=== PATIENT | female | born 1990 | race African-American/Black ===

== ENCOUNTER 2016-10-31 16:22 | Inpatient (IN) ==
[2016-10-31] MEDS ORDERED: ONDANSETRON 4 MG/2 ML VIAL IV STA (16:51)
[2016-10-31] MEDS ORDERED: SODIUM CHLORIDE 0.9% 1,000 ML IV STA (16:51)
--- NOTE | 2016-10-31 16:55 | Emergency Department Note ---
Arrival - Arrival Chief Complaint: Nausea/Vomiting/Diarrhea Stated Complaint: can't hold anything down. foods and liquid ED Nursing Triage Note: Pt c/o nausea and vomiting x 2 wks. Denies diarrhea. Chemo 2 wks ago. Mode of Arrival: Wheelchair Limitations: No Limitations Source: Patient Time Seen by Provider: 10/31/16 16:40 - History of Present Illness HPI Narrative: Patient complains of nausea and vomiting for the past 2 weeks. She has also had body aches and some dizziness. The patient has Hodgkin's lymphoma and took a round of chemo about 3 weeks ago. She has run fever to 102 off and on since the chemo. She also had a biopsy done 5 days ago. She has seen her primary care provider in [place] yesterday. She was called back today and told that her urine showed a urinary tract infection. She also spoke with Dr. Hernandez's office today and was told to come to the emergency room. The patient is taking morphine and Zofran but states they are not helping. Date of Last Menstrual Period: one month ago Allergies/Adverse Reactions: Allergies Allergy/AdvReac Type Severity Reaction Status Date / Time No Known Allergies Allergy Verified 10/02/16 07:39 Home Medications: Home Medications Medication Instructions Recorded Confirmed Type Metformin HCl [Metformin HCl] 1 tablet PO DAILY 10/02/16 10/02/16 History Review of System - Review of System 12 point system: reviewed and no additional remarkable complaints except as stated - Review of System Constitutional: Present: fever (Off and on for 3 weeks. T-max 102) Head/Ears/Nose/Throat: Absent: nasal drainage, sore throat Respiratory: Absent: cough Cardiovascular: Absent: chest pain Gastrointestinal: Present: abdominal pain, nausea, vomiting. Absent: diarrhea, constipation Genitourinary female: Absent: dysuria, frequency Musculoskeletal: Present: other (Body aches) Medical,Surgical,& Family Hx - Medical History Endocrine: History of: Diabetes Mellitus (NIDDM) Respiratory: History of: Obstructive Sleep Apnea (Previously diagnosed many years ago but status post re-titration ) Gastrointestinal: Comment Only: GI Problems (nausea/vomiting) Musculoskeletal: History of: Musculoskeletal Problems Other: History of: Miscellaneous Medical Problems (Hodkins Lymphoma) - Surgical History Surgical History: noncontributory - Family History Family History: Reports;: Family Cancer (grandmother lung, grandfather, colon), Family Hypertension (mother htn) - Social History Smoking Status: Never smoker Exam Physical Examination: GENERAL: Alert. No acute distress. Morbidly obese. HEENT: Normocephalic and atraumatic. There is no nasal drainage. No pharyngeal erythema or exudate. There is thrush on the tongue and mucous membranes are dry. NECK: Normal inspection. Supple. LUNGS: No respiratory distress. Clear to auscultation bilaterally, no wheezes, rales or rhonchi. HEART: Regular rate and rhythm. Chest: Nontender. No erythema around Mediport. ABDOMEN: Soft. Morbidly obese. Mild diffuse tenderness without guarding or rebound. BACK: Normal inspection. SKIN: Color normal. Warm and dry. EXTREMITIES: Nontender. Normal range of motion. No pedal edema. NEUROLOGICAL/PSYCHIATRIC: Alert and oriented -3 with normal mood and affect. Cranial nerves normal. No motor or sensory deficit. Vital Signs: Vital Signs Temperature 98.1 F 10/31/16 16:24 Pulse Rate 114 H 10/31/16 16:24 Respiratory Rate 18 10/31/16 16:24 Blood Pressure 122/98 10/31/16 16:24 O2 Sat by Pulse Oximetry 97 10/31/16 16:24 Course - Reevaluation(s) Reevaluation #1: The patient has remained stable in the ER. Workup reveals a urinary tract infection. It is not clear whether she has another source as well. She does appear dry and will need IV fluids. I discussed patient with Dr. Flynn and will admit to Dr. Hernandez for IV fluids and antibiotics. Time: 19:17 Results - Labs CBC & BMP: 10/31/16 17:37 10/31/16 17:37 Lab Results: I have reviewed the patients labs Labs: Laboratory Tests 10/31/16 10/31/16 17:37 17:37 Lactic Acid 1.2 Total Bilirubin 0.40 AST 14 ALT 10 L Alkaline Phosphatase 150 H Globulin 4.8 H Amylase 42 - Impressions Chest x-ray showed no acute cardiopulmonary abnormality. Mediport in place. KUB showed no abdominal pathology. Ureteral stents in good position. Disposition Clinical Impression: Hodgkins lymphoma, Thrush, UTI (urinary tract infection) Case discussed with: patient, patient's family Disposition: Still a Patient Condition: Stable Time of Disposition: 19:20
[2016-10-31 16:56] LABS: Apearance,Urine CLOUDY (Clear); Bacteria,Urine Moderate /HPF (Few); Bilirubin,Urine Negative (Negative); Blood, Urine Small mg/dL (Negative); Glucose,Urine (UA) Negative (Negative); Ketones,Urine Negative (Negative); Nitrite,Urine Negative (Negative); Protein,Urine 100 MG/DL; RBC,Urine 12 /HPF (0-4); Squamous Epithelial Cell,Urine Occasional /HPF (0-10); Urine Color Yellow (Yellow); Urine Specific Gravity 1.009 (1.001-1.035); WBC,Urine 388 /HPF (0-6)
[2016-10-31] MEDS ORDERED: ONDANSETRON 4 MG/2 ML VIAL ONE (17:30)
[2016-10-31 17:58] LABS: Basophils # 0.1 10*3/uL (0.0-0.2); Basophils % 0.3 % (0.0-0.8); Eosinophils # 0.2 10*3/uL (0.0-0.87); Eosinophils % 1.1 % (0.00-10.9); Immature Granulocytes % 0.5 %; Lymphocytes # 2.7 10*3/uL (1.4-4.0); Mean Corpuscular HGB Conc 30.8 GM/DL (32-36); Mean Corpuscular Hemoglobin 25 PG (27-34); Mean Corpuscular Volume 81.9 FL (87-102); Mean Platelet Volume 9.8 FL (9.6-12.0); Monocytes # 1.6 10*3/uL (0.11-0.8); Monocytes % 8.2 % (1.7-12.7); Neutrophils # 14.7 10*3/uL (1.4-7.4); Neutrophils % 75.9 % (38.7-73.9); Platelet Count 440 T/CUMM (130-400); Red Blood Count 4.76 MC/CUMM (3.8-5.5); White Blood Count 19.4 T/CUMM (4-12)
[2016-10-31 18:25] LABS: Albumin 2.8 G/DL (3.4-5.0); Bilirubin,Total 0.4 MG/DL (0.2-1.0); Calcium 8.5 MG/DL (8.5-10.1); Osmolality,Calculated 275.4 MOS/KG (273-304); Potassium 3.8 MMOL/L (3.5-5.1); Total Protein 7.6 G/DL (6.4-8.3)
--- NOTE | 2016-10-31 18:30 | XRay Report ---
History: Fever. History of Hodgkin's lymphoma Date: 10/31/2016 Study: Chest x-ray AP portable Comparison exam: October 04, 2016 chest x-ray A left upper extremity Mediport-type catheter is well-positioned with its tip over the atriocaval junction region. The cardiac silhouette is not enlarged. There is no mediastinal mass. The pulmonary vasculature is not engorged. There is no gross pleural effusion. The lungs and pleural spaces are generally clear. Shallow breath. Osseous structures are unchanged. Impression: No acute cardiopulmonary process compared to the previous study PROCEDURE INTERPRETED AT [facility] DEPARTMENT OF RADIOLOGY Final Report Signed by: Dr. Nadine Vasques
--- NOTE | 2016-10-31 18:31 | XRay Report ---
History: Abdominal pain and vomiting Date: 10/31/2016 Study: KUB Comparison exam: September 06, 2016 abdominal x-ray The bowel gas pattern is nonobstructive without gross mass lesion. There is a moderate amount of retained stool in the colon. Bilateral ureteral stents are in place, generally in satisfactory position. Phleboliths overlie the left hemipelvis. There is no acute osseous abnormality. Impression: Bilateral ureteral stents in generally satisfactory position. Moderate amount of retained stool in the colon, suggesting constipation PROCEDURE INTERPRETED AT [facility] DEPARTMENT OF RADIOLOGY Final Report Signed by: Dr. Nadine Vasques
[2016-10-31] MEDS ORDERED: MORPHINE 2 MG/1 ML SYRINGE ONE (19:04)
[2016-10-31] MEDS ORDERED: MORPHINE 2 MG/1 ML SYRINGE IV STA (19:11)
[2016-10-31] MEDS ORDERED: diphenhydrAMINE CAP 25 MG CAPSULE PO PRN (21:13)
[2016-10-31] MEDS ORDERED: BENZTROPINE 2 MG/2 ML AMP IV PRN (21:13)
[2016-10-31] MEDS ORDERED: ACETAMINOPHEN 325 MG TABLET PO PRN (21:13)
[2016-10-31] MEDS ORDERED: GLUCAGON 1 MG VIAL IM PRN (21:13)
[2016-10-31] MEDS ORDERED: ALPRAZolam 0.25 MG TABLET PO PRN (21:13)
[2016-10-31] MEDS ORDERED: chlorproMAZINE INJ 25 MG in SODIUM CHLORIDE 0.9% 100 ML IV PRN (21:13)
[2016-10-31] MEDS ORDERED: chlorproMAZINE INJ 50 MG in SODIUM CHLORIDE 0.9% 100 ML IV PRN (21:13)
[2016-10-31] MEDS ORDERED: DEXTROSE 50% 25 GM/50 ML VIAL IV PRN (21:13)
[2016-10-31] MEDS ORDERED: LOPERAMIDE 2 MG CAPSULE PO PRN ×2 (21:13)
[2016-10-31] MEDS ORDERED: MYLANTA/LIDO VISC 2:1 300 ML BOTTLE SWISH/SPIT PRN (21:13)
[2016-10-31] MEDS ORDERED: ALUMINUM/MAGNES/SIMETH MAX STR 30 ML UDCUP PO PRN (21:13)
[2016-10-31] MEDS ORDERED: guaiFENesin 200 MG/10 ML UDCUP PO PRN (21:13)
[2016-10-31] MEDS ORDERED: chlorproMAZINE 25 MG TABLET PO PRN (21:13)
[2016-10-31] MEDS ORDERED: LACTULOSE 20 GM/30 ML UDCUP PO PRN (21:13)
[2016-10-31] MEDS ORDERED: traMADol 50 MG TABLET PO PRN (21:13)
[2016-10-31] MEDS ORDERED: MAGNESIUM HYDROXIDE SUSP 30 ML UDCUP PO PRN (21:13)
[2016-10-31] MEDS ORDERED: TEMAZEPAM 7.5 MG CAPSULE PO PRN (21:13)
[2016-10-31] MEDS ORDERED: MYLANTA/LIDO VISC 2:1 300 ML BOTTLE SWISH/SWAL PRN (21:13)
[2016-10-31] MEDS ORDERED: LEVOFLOXACIN INJ 750 MG in PREMIX 1 EACH IV STA (21:17)
[2016-10-31] MEDS: SODIUM CHLORIDE 0.9% 1,000 ML IV SCH (21:41)
[2016-10-31] MEDS: NYSTATIN 500,000 UNIT/5 ML UDCUP SWISH/SWAL SCH (21:41)
[2016-10-31] MEDS: MORPHINE 2 MG/1 ML SYRINGE IV SCH (21:42)
[2016-10-31] MEDS: ONDANSETRON 4 MG/2 ML VIAL IV PRN (21:42)
[2016-10-31 22:35] LABS: Uric Acid 3.8 MG/DL (2.6-6.0)
[2016-11-01] MEDS: PROMETHAZINE INJ 25 MG in SODIUM CHLORIDE 0.9% 50 ML IV PRN (00:34)
[2016-11-01] MEDS: MORPHINE 2 MG/1 ML SYRINGE IV SCH ×7 (01:55→21:31)
--- NOTE | 2016-11-01 06:47 | Oncology History&Physical ---
History of Present Illness Chief complaint: Acute febrile illness/Hodgkin's disease History of present illness: History of present illness: Ms. Patel is a 26 year old female who was referred to [facility] because it was the opinion of consultants here that the patient might have 2 separate malignancies. She had documented Hodgkin 's disease that is stage IV. She was sent to [facility] for an open biopsy of her left humerus. Shortly after arrival where she was discharged and brought back in the needle biopsy was done that apparently revealed that the involvement of her left humerus, which is extensive, was Hodgkin's disease. The only chemotherapy that she has received was a dose that I gave her prior to being referred to [facility]. She did not receive any chemotherapy while at [facility]. We did not receive any data from [facility] until we have requested it yesterday. 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 The stents are still in place. #6: Diabetes mellitus #7: Anemia requiring blood transfusion #8: Chemotherapy administered October 03, 2016 Adriamycin 50 mg IV Velban 12 mg IV Dacarbazine 750 mg IV Dexamethasone 20 mg given intravenously daily for 3 days #9: Persistently elevated white cell count initially thought to be a leukemoid reaction. #10: Severe pain requiring parenteral narcotic therapy Past medical history: Ms. Patel is a 25 year old female who is transferred from [facility] after undergoing supraclavicular node biopsy that confirmed nodular sclerosing Hodgkin's lymphoma. During that hospital stay she developed acute renal failure as result of hydronephrosis from massive intra-abdominal adenopathy. She had ureteral stents placed and her renal function has begun to improve and actually her serum creatinine was nearly normal yesterday when I accepted her to be transferred here for chemotherapy. She lost over 40 pounds since onset of this present illness in spite of the fact that she now weighs 436 pounds. She underwent right cervical lymph node biopsy on September 21, 2016. The tissue was sent off for a second opinion to the [facility]. The specimen number was [id number]. Her account number at [facility] was [id number]. The report came back from [place] that this was nodular sclerosing Hodgkin's disease. She certainly has bulky disease. It has caused ureteral obstruction requiring placement of ureteral stents by Dr. Bryan Wayne. Nephrology was also consulted and she has been seen by Dr. Mika Chan. She had a CT of the abdomen and pelvis done September 18, 2016 that confirmed extensive abdominal adenopathy with hydronephrosis. My plan is to treat her with Adriamycin, Velban and DTIC. I do not plan to use bleomycin in her case because I think it is too risky. She is morbidly obese and has respiratory problems and I am concerned that the bleomycin could produce pulmonary toxicity. Past medical history: Allergies: She has no known allergies. Height 5 feet 9 inches, weight 136 pounds, BSA 2.88 m Past medical history is positive for acute renal failure, asthma, benign hypertension, leukocytosis, microcytic anemia, morbid obesity, obstructive sleep apnea, rectal hemorrhage and type 2 diabetes mellitus. Previous operations include a tubal ligation, breast biopsy and some type of procedure on her legs. Social history: She has 1/12 grade education. She does not use alcohol or tobacco. She is unemployed. Family history: The patient does not list any family history of blood disorders , clotting or bleeding disorders, heart disease or diabetes. Also no family history of cancer. Current medications include allopurinol 100 mg daily, Humalog and Protonix. The patient had a 2D echocardiogram on September 29, 2016 that suggested some mild decrease in her ejection fraction is somewhere between 40% and 50% with trace mitral and tricuspid regurgitation. ROS Gen.: Positive for weight loss, loss of appetite, fever, chills, fatigue, night sweats, edema of the extremities and lymphadenopathy. Eyes: No history of chronic disease, infections or visual loss. ENT: No history of chronic infections, epistaxis, chronic sore throat Lungs: She has dyspnea at rest and with exertion. No history of asthma, emphysema, hemoptysis, chronic pleurisy or long-term or chronic infections Cardiovascular: She has palpitations, orthopnea and increasing pedal edema. She also has a history of congestive heart failure. No history of angina, coronary artery disease., GI: She has a history of generalized abdominal pain and nausea without vomiting , also a history of diarrhea and constipation. No history of upper or lower GI bleeding, melena, dysphagia, odynophagia, liver disease, gallbladder disease or pancreatic disease. : No history of kidney stones, chronic kidney infections or hematuria. Musculoskeletal: She has a history of joint pain and arthritis. Neurologic: She has a history of lightheadedness and generalized weakness. No history of seizures, convulsions or paralysis. Psychiatric: No history of chronic psychiatric illness or psychiatric medications. Lymphatic: No history of significant or long-term lymphadenopathy Hematologic: She has been noted to have anemia and leukocytosis since onset of this present illness. Skin: No history of chronic skin infections or rashes or significant skin lesions. Physical examination: General: The patient is morbidly obese but she does not appear particularly acutely ill. Eyes: Normal lids and conjunctivae. ENT: Her hearing is normal. Her oral mucosa and pharynx are normal. Her trachea is midline and she has no neck masses. The previously documented left cervical adenopathy is no longer palpable. Lungs: Breath sounds are normal without rubs, rales or rhonchi. There is symmetrical unlabored chest motion with respiration. Cardiovascular: Her heart rhythm is regular without murmur, gallop or rub. There is no jugular venous distention, clubbing, cyanosis or edema. Abdomen: She is so morbidly obese but I cannot palpate any masses at all. There does not appear to be any tenderness and I cannot identify any ascites. Musculoskeletal: She has had decreased range of motion in her left shoulder and arm. She has documented extensive involvement by tumor in that area, apparently this is Hodgkin's disease. I am told verbally that the biopsy was positive that was done at [facility]. Neurologic: Cranial nerves II through XII are intact. There are no focal neurologic deficits. Nodes: I can palpate no submandibular, cervical, supraclavicular or axillary adenopathy. Skin: I can identify no significant skin lesions or rashes. 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 #3: Urinary tract infection #4: Morbid obesity, admission weight 375 pounds #5: Acute renal failure, resolved, requiring ureteral stenting. The stents are still in place to the best of my knowledge.. #6: Prior history of diabetes mellitus #7: Anemia requiring blood transfusion #8: Chemotherapy administered October 03, 2016 Adriamycin 50 mg IV Velban 12 mg IV Dacarbazine 750 mg IV Dexamethasone 20 mg given intravenously daily for 3 days #9: Persistently elevated white cell count initially thought to be a leukemoid reaction. #10: Severe pain requiring parenteral narcotic therapy We are proceeding with her second course of chemotherapy belatedly. There was a 4 week delay between the first half of course #1 of AVD and the second half which should have been given on day 15 following the initial dose. I am also treating the patient for apparent urinary tract infection. Her renal function is satisfactory. Home Medications Medication Instructions Recorded Confirmed Type Levothyroxine Tab [Synthroid Tab] 50 mcg PO DAILY 11/01/16 11/01/16 History Morphine ER Tab [Ms Contin] 60 mg PO Q12H PRN 11/01/16 11/01/16 History Omeprazole 20 mg PO DAILY 11/01/16 11/01/16 History Ondansetron Tab [Zofran Tab] 4 mg PO Q6HR PRN 11/01/16 11/01/16 History Polyethylene Glycol Powder 17 gm PO DAILY PRN 11/01/16 11/01/16 History [Miralax] Promethazine Tab [Phenergan Tab] 25 mg PO Q6H PRN 11/01/16 11/01/16 History Allergies Allergy/AdvReac Type Severity Reaction Status Date / Time No Known Allergies Allergy Verified 10/02/16 07:39 Medical,Surgical,& Family Hx - Medical History Endocrine: History of: Diabetes Mellitus (NIDDM) Respiratory: History of: Obstructive Sleep Apnea (Previously diagnosed many years ago but status post re-titration ) Gastrointestinal: Comment Only: GI Problems (nausea/vomiting) Musculoskeletal: History of: Musculoskeletal Problems Other: History of: Miscellaneous Medical Problems (Hodkins Lymphoma) - Family History Family History: Reports;: Family Cancer (grandmother lung, grandfather, colon), Family Hypertension (mother htn) - Social History Smoking Status: Never smoker Exam - Constitutional Vitals: Period Temp Pulse Resp BP Sys/[place]tree Pulse Ox Last 24 Hr 96.4 F-96.8 F 107-112 16-21 133-136/81-82 97-97 Results - Labs CBC & BMP: 10/31/16 17:37 10/31/16 17:37
[2016-11-01] MEDS: MEROPENEM 1,000 MG in SODIUM CHLORIDE 0.9% 100 ML IV SCH ×2 (07:03→19:28)
[2016-11-01] MEDS: ONDANSETRON 4 MG/2 ML VIAL IV PRN (07:46)
[2016-11-01] MEDS: SODIUM CHLORIDE 0.9% 1,000 ML IV SCH ×2 (07:49→19:08)
[2016-11-01] MEDS ORDERED: PROMETHAZINE 25 MG TABLET PO PRN (08:34)
[2016-11-01] MEDS ORDERED: POLYETHYLENE GLYCOL POWDER 17 GM PACK PO PRN (08:34)
[2016-11-01] MEDS ORDERED: MORPHINE ER 30 MG TABLET PO PRN (08:34)
[2016-11-01] MEDS ORDERED: ONDANSETRON 4 MG TABLET PO PRN (08:34)
[2016-11-01] MEDS ORDERED: DEXAMETHASONE 10 MG/1 ML VIAL IV SCH (09:00)
[2016-11-01] MEDS ORDERED: metFORMIN 850 MG TABLET PO SCH (09:00)
[2016-11-01] MEDS ORDERED: PANTOPRAZOLE 40 MG TABLET PO SCH (09:00)
[2016-11-01] MEDS: LEVOTHYROXINE 50 MCG TABLET PO SCH (10:42)
[2016-11-01] MEDS: NYSTATIN 500,000 UNIT/5 ML UDCUP SWISH/SWAL SCH ×4 (10:43→21:32)
[2016-11-01] MEDS: PANTOPRAZOLE 40 MG TABLET PO SCH (10:43)
[2016-11-01] MEDS ORDERED: DEXTROSE 5% IV ONE (11:00)
[2016-11-01] MEDS ORDERED: VINBLASTINE IV ONE (11:00)
[2016-11-01] MEDS ORDERED: DOXORUBICIN IV ONE (11:00)
[2016-11-01] MEDS ORDERED: DACARBAZINE IV ONE (11:00)
[2016-11-01] MEDS ORDERED: SODIUM CHLORIDE 0.9% IV ONE (11:00)
[2016-11-01] MEDS: GRANISETRON 1 MG/1 ML VIAL IV SCH (14:06)
[2016-11-01] MEDS: DEXAMETHASONE INJ 20 MG in SODIUM CHLORIDE 0.9% 50 ML IV SCH (14:14)
[2016-11-02] MEDS: PROMETHAZINE INJ 25 MG in SODIUM CHLORIDE 0.9% 50 ML IV PRN (01:53)
[2016-11-02] MEDS: MORPHINE 2 MG/1 ML SYRINGE IV SCH ×7 (01:54→23:54)
[2016-11-02] MEDS: MEROPENEM 1,000 MG in SODIUM CHLORIDE 0.9% 100 ML IV SCH ×3 (04:19→20:45)
[2016-11-02] MEDS: SODIUM CHLORIDE 0.9% 1,000 ML IV SCH (04:19)
--- NOTE | 2016-11-02 07:42 | Oncology Progress Note ---
Oncology Subjective PN Interval history: This is an unfortunate patient with stage IV nodular sclerosing Hodgkin's disease who was admitted with an acute febrile illness and symptoms of urinary tract infection. Ms. 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 The stents are still in place. #6: Diabetes mellitus for which she is no longer being treated. #7: Anemia requiring blood transfusion #8: Chemotherapy administered November 01, 2016. This was actually supposed to be day 14 although it ended up being day 14 of course #1 of chemotherapy. So far, blood cultures and urine culture are negative on this admission. She received the second half of her first course of Adriamycin, vinblastine and DTIC yesterday. Exam - Constitutional Vitals: Period Temp Pulse Resp BP Sys/Crabtree Pulse Ox Last 24 Hr 96.6 F-97.6 F 90-106 16-20 124-148/59-85 92-99 Results - Labs CBC & BMP: 10/31/16 17:37 10/31/16 17:37
[2016-11-02 08:21] LABS: Basophils % 0.1 % (0.0-0.8); Hematocrit 34.1 VOL% (35.7-47.0); Hemoglobin 10.6 GM/DL (12.0-16.0); Immature Granulocytes % 0.8 %; Immature Granulocytes Absolute 0.13 #; Lymphocytes # 1.6 10*3/uL (1.4-4.0); Lymphocytes % 10.2 % (21.3-54.2); Mean Corpuscular HGB Conc 31.1 GM/DL (32-36); Mean Corpuscular Hemoglobin 25 PG (27-34); Mean Corpuscular Volume 81.4 FL (87-102); Mean Platelet Volume 10.2 FL (9.6-12.0); Monocytes # 1.1 10*3/uL (0.11-0.8); Monocytes % 6.8 % (1.7-12.7); Neutrophils # 12.9 10*3/uL (1.4-7.4); Neutrophils % 82.1 % (38.7-73.9); Platelet Count 371 T/CUMM (130-400); Red Blood Count 4.19 MC/CUMM (3.8-5.5); Red Cell Distribution Width 20.3 % (9.3-17.3); White Blood Count 15.7 T/CUMM (4-12)
[2016-11-02 08:48] LABS: Alanine Aminotransferase 9 U/L (13-56); Albumin 2.4 G/DL (3.4-5.0); Alkaline Phosphatase 128 U/L (45-117); Aspartate Amino Transferase 10 U/L (0-37); Bilirubin,Total < 0.39 MG/DL (0.2-1.0); Blood Urea Nitrogen 6 MG/DL (7-18); Calcium 8.2 MG/DL (8.5-10.1); Glucose 122 MG/DL (74-106); Osmolality,Calculated 279.3 MOS/KG (273-304); Sodium 141 MMOL/L (136-145); Total Protein 6.7 G/DL (6.4-8.3)
[2016-11-02] MEDS: PANTOPRAZOLE 40 MG TABLET PO SCH (09:28)
[2016-11-02] MEDS: LEVOTHYROXINE 50 MCG TABLET PO SCH (09:28)
[2016-11-02] MEDS: GRANISETRON 1 MG/1 ML VIAL IV SCH (09:29)
[2016-11-02] MEDS: DEXAMETHASONE INJ 20 MG in SODIUM CHLORIDE 0.9% 50 ML IV SCH (09:29)
[2016-11-02] MEDS: NYSTATIN 500,000 UNIT/5 ML UDCUP SWISH/SWAL SCH ×4 (09:29→20:45)
--- NOTE | 2016-11-02 09:54 | Discharge Summary ---
Hospital Course - Hospital Course Hospital Course: Diagnoses: This 26-year-old unfortunate patient who has stage IV nodular sclerosing Hodgkin's disease was admitted with fever and signs and symptoms of a urinary tract infection. However, urine and blood cultures are negative and she is now afebrile. Antibiotics have been instituted outpatient already and the patient was apparently responding to what she had previously received. 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 The stents are still in place. #6: Diabetes mellitus for which she is no longer being treated. #7: Anemia requiring blood transfusion #8: Chemotherapy administered November 01, 2016. This was actually supposed to be day 14 although it ended up being day 14 of course #1 of chemotherapy. So far, blood cultures and urine culture are negative on this admission. She received the second half of her first course of Adriamycin, vinblastine and DTIC yesterday. Chemotherapy administered November 01, 2016 consisted of: Adriamycin 50 mg IV Velban 12 mg IV Dacarbazine 750 mg IV Dexamethasone 20 mg IV daily for 2 days. I am discharging her today on her previous home medications. I am discharging her on Levaquin 750 mg p.o. daily for 7 days and Diflucan 100 mg p.o. daily for 5 days. I did not actually identify a significant yeast infection but this patient prone to having them because she is receiving chemotherapy for Hodgkin's disease. Discharge Plan - Discharge Data Disposition: Disch To Home/Self Care Condition at Discharge: Guarded Discharge Diet: advance to your usual diet Activity: resume usual activities as tolerated Hygiene: no restrictions Weight Bearing at Discharge: weight bear as tolerated Driving: other Contact your physician if you experience:: fever over 101, Difficulty voiding, Redness or swelling, Nausea/Vomiting, Shortness of breath, Bleeding, pain uncontrolled by pain medications - Discharge Medications Continue Polyethylene Glycol Powder [Miralax] 17 gm PO DAILY PRN PRN Reason: Constipation Morphine ER Tab [Ms Contin] 60 mg PO Q12H PRN PRN Reason: Pain Promethazine Tab [Phenergan Tab] 25 mg PO Q6H PRN PRN Reason: Nausea/Vomiting Ondansetron Tab [Zofran Tab] 4 mg PO Q6HR PRN PRN Reason: Nausea/Vomiting Levothyroxine Tab [Synthroid Tab] 50 mcg PO DAILY Omeprazole 20 mg PO DAILY - Follow Up or Referral - Forms/Instructions Additional Discharge Instructions: Discharge with new prescription for Levaquin 750 mg p.o. daily for 7 days and Diflucan 100 mg p.o. daily for 5 days. Appointment to see me in 2 weeks with CBC, CMP and LDH and extra red top tube. Exam - Constitutional Vitals: Period Temp Pulse Resp BP Sys/Crabtree Pulse Ox Last 24 Hr 96.6 F-97.6 F 89-106 16-20 124-148/59-85 92-99 Discharge Results Procedures and tests throughout hospitalization: Pending Orders 11/03/16 04:00 Comp Blood Count Auto Diff IN AM Comprehensive Metabolic Panel IN AM LDH [Lactate Dehydrogenase] IN AM 11/04/16 04:00 Comp Blood Count Auto Diff IN AM Comprehensive Metabolic Panel IN AM LDH [Lactate Dehydrogenase] IN AM 11/05/16 04:00 Comp Blood Count Auto Diff IN AM Comprehensive Metabolic Panel IN AM LDH [Lactate Dehydrogenase] IN AM 11/06/16 04:00 Comp Blood Count Auto Diff IN AM Comprehensive Metabolic Panel IN AM LDH [Lactate Dehydrogenase] IN AM 11/07/16 04:00 Comp Blood Count Auto Diff IN AM Comprehensive Metabolic Panel IN AM LDH [Lactate Dehydrogenase] IN AM 11/08/16 04:00 Comp Blood Count Auto Diff IN AM Comprehensive Metabolic Panel IN AM Labs on day of discharge: Labs from last 24 hours 11/02/16 11/02/16 11/02/16 08:11 08:00 08:00 WBC 15.7 H RBC 4.19 Hgb 10.6 L Hct 34.1 L MCV 81.4 L MCH 25 L MCHC 31.1 L RDW 20.3 H Plt Count 371 MPV 10.2 Neut % (Auto) 82.1 H Lymph % (Auto) 10.2 L [place] % (Auto) 6.8 Eos % (Auto) 0.0 Baso % (Auto) 0.1 Neut # (Auto) 12.9 H Lymph # (Auto) 1.6 [place] # (Auto) 1.1 H Eos # (Auto) 0.0 Baso # (Auto) 0.0 Immature Gran % 0.8 Nucleated RBC % 0.0 Immature Gran # 0.13 Nucleated RBCs # 0.00 Sodium 141 Potassium 4.0 Chloride 109 H Carbon Dioxide 24 Anion Gap 12.0 BUN 6 L Creatinine 0.60 GFR Calculation 231 BUN/Creatinine Ratio 10.00 Glucose 122 H POC Glucose 101 Calculated Osmolality 279.3 Calcium 8.2 L Total Bilirubin < 0.39 AST 10 ALT 9 L Alkaline Phosphatase 128 H Lactate Dehydrogenase 199 Total Protein 6.7 Albumin 2.4 L Globulin 4.3 H Albumin/Globulin Ratio 0.5 L Preliminary micro results at discharge 10/31/16 Unknown Urine Culture - Preliminary Urine,Voided No Growth at 12 hours. DS: Provider Date of admission: 10/31/16 19:23 Primary care physician: Ewelina Teague Attending physician on admission: Familia Hernandez MD Discharging clinician: Familia Hernandez MD
[2016-11-02] MEDS ORDERED: HEPARIN LOCK FLUSH 500 UNIT/5 ML SYRINGE IV ONE (11:38)
[2016-11-02] MEDS: HEPARIN LOCK FLUSH 500 UNIT/5 ML SYRINGE IV PRN (13:11)
[2016-11-03] MEDS: MEROPENEM 1,000 MG in SODIUM CHLORIDE 0.9% 100 ML IV SCH ×2 (03:07→13:46)
[2016-11-03] MEDS: MORPHINE 2 MG/1 ML SYRINGE IV SCH ×3 (04:55→13:47)
[2016-11-03 05:28] LABS: Basophils % 0.1 % (0.0-0.8); Hematocrit 33.1 VOL% (35.7-47.0); Hemoglobin 10.5 GM/DL (12.0-16.0); Immature Granulocytes % 0.8 %; Immature Granulocytes Absolute 0.12 #; Lymphocytes # 1.5 10*3/uL (1.4-4.0); Lymphocytes % 9.9 % (21.3-54.2); Mean Corpuscular HGB Conc 31.7 GM/DL (32-36); Mean Corpuscular Hemoglobin 25 PG (27-34); Mean Corpuscular Volume 79.6 FL (87-102); Mean Platelet Volume 10.7 FL (9.6-12.0); Monocytes # 1.4 10*3/uL (0.11-0.8); Monocytes % 9.1 % (1.7-12.7); Neutrophils # 12.2 10*3/uL (1.4-7.4); Neutrophils % 80.1 % (38.7-73.9); Platelet Count 349 T/CUMM (130-400); Red Blood Count 4.16 MC/CUMM (3.8-5.5); Red Cell Distribution Width 20.6 % (9.3-17.3); White Blood Count 15.2 T/CUMM (4-12)
[2016-11-03 06:03] LABS: Albumin 2.4 G/DL (3.4-5.0); Bilirubin,Total 0.4 MG/DL (0.2-1.0); Calcium 8.7 MG/DL (8.5-10.1); Osmolality,Calculated 277.4 MOS/KG (273-304); Potassium 4.3 MMOL/L (3.5-5.1); Total Protein 6.7 G/DL (6.4-8.3)
[2016-11-03] MEDS: SODIUM CHLORIDE 0.9% 1,000 ML IV SCH ×3 (07:54→13:47)
[2016-11-03] MEDS: LEVOTHYROXINE 50 MCG TABLET PO SCH (09:32)
[2016-11-03] MEDS: GRANISETRON 1 MG/1 ML VIAL IV SCH (09:32)
[2016-11-03] MEDS: PANTOPRAZOLE 40 MG TABLET PO SCH (09:32)
[2016-11-03] MEDS: NYSTATIN 500,000 UNIT/5 ML UDCUP SWISH/SWAL SCH (09:32)
[2016-11-03] MEDS: DEXAMETHASONE INJ 20 MG in SODIUM CHLORIDE 0.9% 50 ML IV SCH (09:41)
[2016-11-03] MEDS: HEPARIN LOCK FLUSH 500 UNIT/5 ML SYRINGE IV PRN (12:26)
[2016-11-03 14:07] VITALS: BP 118/77
== END 2016-11-03 13:20 | disposition home health service (06) | DRG 463 ==
LOC: N.ED 16:22 → N.EDINP 19:23 → N.4E 20:29
PROVIDERS: ADMIT Specialist; ATTEND Specialist